=== PATIENT | female | born 1995 | race Caucasian/White ===

== ENCOUNTER → 2019-12-16 | Outpatient (CLI) | payer BC ==
[~2019-12-16] MED LIST: ALBUTEROL0.09 MG/A2 IH; AMOXICILLIN500 MG PO
== END | disposition home or self-care (01) ==
LOC: COVID19 05:39
DX: R50.9 Fever, unspecified (principal); Z20.828 Contact with and (suspected) exposure to other viral communicable diseases

== ENCOUNTER 2020-01-25 08:15 | Emergency (ER) | payer BC ==
[~2020-01-25] VITALS: Ht 172.7 cm; Wt 56.7 kg
[2020-01-25] MEDS ORDERED: TRI-SPRINTEC T1 EACH PO (08:30)
[2020-01-25] MEDS ORDERED: NAPROXEN250 MG PO (09:37)
[2020-01-25] MEDS ORDERED: TYLENOL325 M1 PO (09:37)
== END 2020-01-25 09:43 | disposition home or self-care (01) ==
LOC: ED 08:15
DX: S93.601A Unspecified sprain of right foot, initial encounter (principal); Z79.899 Other long term (current) drug therapy; X58.XXXA Exposure to other specified factors, initial encounter; Y93.89 Activity, other specified; Y92.89 Other specified places as the place of occurrence of the external cause; Y99.8 Other external cause status

== ENCOUNTER → 2023-07-12 | Outpatient (CLI) | payer OTHER ==
[~2023-07-12] MED LIST changes: +NAPROXEN250 MG PO; +TRI-SPRINTEC T1 EACH PO; +TYLENOL325 M1 PO
== END | disposition home or self-care (01) ==
LOC: RAD 10:53
PROVIDERS: ATTEND Family Medicine
DX: M41.84 Other forms of scoliosis, thoracic region (principal); J90 Pleural effusion, not elsewhere classified

== ENCOUNTER 2023-12-09 14:49 | Emergency (ER) | payer OTHER ==
[~2023-12-09] VITALS: Ht 172.7 cm; Wt 59.0 kg
[2023-12-09] MEDS ORDERED: JENCYCLA0.35 M1 PO (14:57)
[2023-12-09] MEDS ORDERED: CEPHALEXIN 500 MG CAP PO ONE (15:30)
[2023-12-09] MEDS ORDERED: Gelatin Sponge 1 EACH SPON T ONE (15:30)
[2023-12-09] MEDS ORDERED: CEPHALEXIN500 M1 PO (16:10)
== END 2023-12-09 16:20 | disposition home or self-care (01) ==
LOC: ED 14:49
DX: S61.011A Laceration without foreign body of right thumb without damage to nail, initial encounter (principal); J45.909 Unspecified asthma, uncomplicated; Z91.040 Latex allergy status; Z88.8 Allergy status to other drugs, medicaments and biological substances; W26.0XXA Contact with knife, initial encounter; Y93.G3 Activity, cooking and baking; Y92.89 Other specified places as the place of occurrence of the external cause; Y99.8 Other external cause status